=== PATIENT | male | born 1955 | race Caucasian/White ===

== ENCOUNTER 2018-06-18 19:34 | Inpatient (IN) | payer MEDICAID ==
[~2018-06-18] VITALS: Ht 172.7 cm; Wt 110.4 kg
[2018-06-18 19:37] VITALS: Ht 172.7 cm; Wt 110.4 kg
[2018-06-18 20:31] LABS: microscopic required? NO
[2018-06-18 20:42] LABS: UA SPECIFIC GRAVITY 1.025 (1.005-1.035); urine erythrocyte NEGATIVE (NEGATIVE)
[2018-06-18 20:50] LABS: BASOPHIL % 0.8 % (0-2); PLATELET COUNT 160 x10^3mcL (130-400); RED CELL DISTRIBUTION WIDTH 13.5 % (11.5-14.5)
[2018-06-18 20:52] LABS: AMPHETAMINE QUAL UR NONE DETECTED (See below)
[2018-06-18 21:15] LABS: CALCIUM 10.1 mg/dL (8.5-10.1); CARBON DIOXIDE 24.3 mmol/L (21-32); CHLORIDE SERUM 105 mmol/L (98-107); CREATININE SERUM 0.9 mg/dL (0.7-1.3); GFR1 > 60 mL/min; GLUCOSE SERUM 149 mg/dL (74-106); SODIUM SERUM 140 mmol/L (136-145)
[2018-06-18 21:19] LABS: ALBUMIN 3.3 g/dL (3.4-5.0); ALKALINE PHOSPHATASE 138 U/L (46-116); ALT/SGPT 64 U/L (16-63); AMYLASE 85 U/L (25-115); AST/SGOT 31 U/L (15-37); BILIRUBIN TOTAL 0.3 mg/dL (0.20-1.00); CHOLESTEROL 156 mg/dL (<200); HDL CHOLESTEROL 27 mg/dL (40-60); LIPASE 108 IU/L (73-393); MAGNESIUM 1.9 mg/dL (1.8-2.4); TOTAL PROTEIN, SERUM 7.5 g/dL (6.4-8.2)
[2018-06-18] MEDS ORDERED: ASPIR 8181 MG PO (22:04)
[2018-06-18] MEDS ORDERED: ATENOLOL25 MG PO (22:04)
[2018-06-18] MEDS ORDERED: ZESTRIL20 MG PO (22:04)
[2018-06-18 22:54] LABS: T3 TOTAL 1.4 ng/mL
[2018-06-18 23:09] VITALS: BP 128/74
[2018-06-18 23:21] LABS: CHOLESTEROL 158 mg/dL (<200); PHOSPHOROUS 2.6 mg/dL (2.5-4.9)
[2018-06-18 23:25] LABS: CHOLESTEROL/HDL RATIO 5.9; HDL CHOLESTEROL 27 mg/dL (40-60); TRIGLYCERIDES 478 mg/dL (<150)
[2018-06-18 23:32] LABS: FREE T4 1.01 ng/dL (0.76-1.46); FREE THYROXINE INDEX 2.7 ug/dL (1.4-4.5); T4(THYROXINE) 7.9 ug/dL (4.7-13.3)
[2018-06-19 06:43] VITALS: BP 123/82
[2018-06-19 06:56] LABS: BASOPHIL % 0.7 % (0-2); PLATELET COUNT 159 x10^3mcL (130-400); RED CELL DISTRIBUTION WIDTH 13.5 % (11.5-14.5)
[2018-06-19 07:10] LABS: CALCIUM 9.5 mg/dL (8.5-10.1); CARBON DIOXIDE 26.5 mmol/L (21-32); CHLORIDE SERUM 110 mmol/L (98-107); CREATININE SERUM 0.8 mg/dL (0.7-1.3); GFR1 > 60 mL/min; GLUCOSE SERUM 111 mg/dL (74-106); SODIUM SERUM 143 mmol/L (136-145)
[2018-06-19 10:00] VITALS: BP 118/59
[2018-06-19 11:59] VITALS: BP 118/59
[2018-06-19 12:57] VITALS: BP 135/87
== END 2018-06-19 14:02 | disposition home or self-care (01) | DRG 203 ==
LOC: ED 19:34 → DU 21:46
PROVIDERS: Emergency Medicine; Family Medicine
DX: M94.0 Chondrocostal junction syndrome [Tietze] (principal); E78.5 Hyperlipidemia, unspecified; I10 Essential (primary) hypertension; Z79.82 Long term (current) use of aspirin; Z68.36 Body mass index [BMI] 36.0-36.9, adult
CPT/HCPCS: 82962; 83880; 84439; 90658; J7030; Q0092

== ENCOUNTER 2018-11-09 16:09 | Emergency (ER) | payer OTHER ==
[~2018-11-09] VITALS: Ht 172.7 cm; Wt 107.5 kg
[~2018-11-09 16:09] MED LIST: ASPIR 8181 MG PO; ATENOLOL25 MG PO; ZESTRIL20 MG PO
[2018-11-09 16:21] VITALS: Ht 172.7 cm; Wt 107.5 kg
[2018-11-09 17:32] LABS: ALBUMIN 3.4 g/dL (3.4-5.0); CALCIUM 10.8 mg/dL (8.5-10.1); CARBON DIOXIDE 29.7 mmol/L (21-32); CHLORIDE SERUM 104 mmol/L (98-107); CREATININE SERUM 0.7 mg/dL (0.7-1.3); GFR1 > 60 mL/min; POTASSIUM SERUM 4.2 mmol/L (3.5-5.1); SODIUM SERUM 139 mmol/L (136-145)
[2018-11-09 17:40] LABS: BASOPHIL % 0.4 % (0-2); PLATELET COUNT 170 x10^3mcL (130-400)
[2018-11-09 17:44] LABS: ALT/SGPT 32 U/L (16-63); AST/SGOT 19 U/L (15-37); CHOLESTEROL 147 mg/dL (<200); GLUCOSE SERUM 100 mg/dL (74-106)
[2018-11-09 18:02] LABS: ALKALINE PHOSPHATASE 114 U/L (46-116); BILIRUBIN TOTAL 0.29 mg/dL (0.20-1.00); TOTAL PROTEIN, SERUM 7.6 g/dL (6.4-8.2)
[2018-11-09 18:11] LABS: CHOLESTEROL/HDL RATIO 5.4; HDL CHOLESTEROL 27 mg/dL (40-60); TRIGLYCERIDES 300 mg/dL (<150)
[2018-11-09 18:16] LABS: T3 TOTAL 1.21 ng/mL
[2018-11-09 18:34] LABS: FREE T4 1.03 ng/dL (0.76-1.46); FREE THYROXINE INDEX 3.1 ug/dL (1.4-4.5); T4(THYROXINE) 9.2 ug/dL (4.7-13.3)
[2018-11-09 19:07] VITALS: BP 119/78
== END 2018-11-09 19:07 | disposition home or self-care (01) ==
LOC: ED 16:09
PROVIDERS: Emergency Medicine
DX: H02.102 Unspecified ectropion of right lower eyelid (principal); H02.105 Unspecified ectropion of left lower eyelid; I10 Essential (primary) hypertension; Z98.890 Other specified postprocedural states
CPT/HCPCS: 36415; 84439

== ENCOUNTER 2019-07-17 12:14 | Emergency (ER) | payer OTHER ==
[~2019-07-17] VITALS: Ht 172.7 cm; Wt 63.5 kg
[2019-07-17 12:27] VITALS: Ht 172.7 cm; Wt 63.5 kg
[2019-07-17 15:00] VITALS: BP 162/92
== END 2019-07-17 15:00 | disposition home or self-care (01) ==
LOC: ED 12:14
DX: L60.0 Ingrowing nail (principal); I10 Essential (primary) hypertension; Z98.890 Other specified postprocedural states